=== PATIENT | male | born 1965 | race Caucasian/White ===

== ENCOUNTER 2020-12-15 09:50 | Emergency (ER) | payer BC ==
[2020-12-15] MEDS ORDERED: Sodium Chloride 0.9% 10 ML Syringe FLUSH PRN (10:13)
[2020-12-15] MEDS ORDERED: methylPREDNISolone Sodium Succinate 125 MG/2 ML SDV IVPUSH ONE (10:13)
[2020-12-15] MEDS ORDERED: HYDROmorphone 1 MG/ML Syringe IVPUSH ONE (10:13)
--- NOTE | 2020-12-15 11:00 | EDM.PDOC ---
ED HPI GENERAL MEDICAL PROBLEM - General Stated Complaint: NECK PAIN Time Seen by Provider: 12/15/20 10:45 Source of Information: Reports: Patient, Family History Limitations: Reports: No Limitations - History of Present Illness INITIAL COMMENTS - FREE TEXT/NARRATIVE: Patient presents for neck pain. He states that on Dec 12 he awoke with a stiff and sore neck. He didn't think much of it and went about his day other than his ability to turn his head to the right was limited. Went to the gym, stretched and tried to lift. This made it a bit worse. 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 Didn't help. Went to see a chiropractor but did not have forceful manipulation of the neck. Then went to a massage therapist. None of these things helped,. He has been taking NSAIDS and had a flexeril one night that helped him sleep for a bit. No neck trauma. No changes in vision, no numbness or weakness to the upper extremities. Onset Date: 12/12/20 Duration: Getting Worse Location: Reports: Neck Associated Symptoms: Reports: No Other Symptoms Treatments YARD COUPLER: Reports: NSAIDS, Other Medication(s) Other Treatments YARD COUPLER: flexeril, chiropractic, massage - Related Data Allergies Allergy/AdvReac Type Severity Reaction Status Date / Time dust mites Allergy Other Uncoded 03/26/18 12:11 mold and smuts Allergy Other Uncoded 03/26/18 12:11 weeds Allergy Other Uncoded 03/26/18 12:11 Home Meds: Home Meds Cyclobenzaprine HCl 10 mg PO TID PRN 03/26/18 [History] Multivitamin [Multiple Vitamins] 1 tab PO DAILY 03/26/18 [History] Hydrocodone/Acetaminophen [HYDROcodone-Acetaminophen 5-325 MG] 1 each PO Q4H #25 tab 12/15/20 [Rx] diazePAM [Valium] 5 mg PO TID PRN #15 tablet 12/15/20 [Rx] Past Medical History Cardiovascular History: Reports: High Cholesterol Gastrointestinal History: Reports: Other (See Below) Other Gastrointestinal History: FM HX colon polyps Other Neuro History: Insomnia - Past Surgical History Neurological Surgical History: Reports: Spinal Fusion Musculoskeletal Surgical History: Reports: Arthroscopic Knee, Other (See Below) Other Musculoskeletal Surgeries/Procedures:: Spine surgery. Hammer toe. Bunionectomy Left. Stab phlebectomy varicose veins. back muscle spasms Social & Family History - Tobacco Use Tobacco Use Status *Q: Never Tobacco User - Recreational Drug Use Recreational Drug Use: No Drug Use in Last 12 Months: No - Living Situation & Occupation Living situation: Reports: , with Spouse ED ROS GENERAL - Review of Systems Review Of Systems: See Below Constitutional: Reports: No Symptoms. Denies: Fever, Chills, Fatigue HEENT: Reports: No Symptoms. Denies: Nosebleed, Nose Pain, Rhinitis, Sinus Problem Respiratory: Reports: No Symptoms. Denies: Shortness of Breath, Wheezing, Cough Cardiovascular: Reports: No Symptoms. Denies: Chest Pain, Dyspnea on Exertion, Edema Endocrine: Reports: No Symptoms GI/Abdominal: Reports: No Symptoms. Denies: Abdominal Pain, Diarrhea, Nausea, Vomiting : Reports: No Symptoms. Denies: Discharge, Dysuria, Frequency Musculoskeletal: Reports: Neck Pain Skin: Reports: No Symptoms Neurological: Reports: No Symptoms. Denies: Confusion, Dizziness, Headache, Seizure, Tremors, Trouble Speaking ED EXAM, UPPER BACK/NECK PAIN - Physical Exam Exam: See Below Exam Limited By: No Limitations General Appearance: Alert, WD/WN, No Apparent Distress Eye Exam: Bilateral Eye: EOMI, Normal Inspection, PERRL Ears Exam: Normal External Exam, Normal Canal, Hearing Grossly Normal, Normal TMs Nose Exam: Normal Inspection, Normal Mucousa Throat/Mouth Exam: Normal Inspection, Normal Lips, Normal Teeth, Normal Oropharynx, Normal Voice, No Airway Compromise Head Exam: Atraumatic Neck Exam: Limited Range of Motion (minimal ability to rotate to the left, right, chin to chest and extension of the neck), Muscle Spasm (of the trapezius bilaterally and the scalenes bilaterally. ), Painful Range of Motion. No: Stiff Neck Nexus Criteria: No: Posterior, Midline Cervical Tenderness Cardiovascular/Respiratory: Regular Rate, Rhythm, Normal Breath Sounds Extremities: Other (negative pronator drift. 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 normal sensation of the upper extremities) Neurologic: No Motor/Sensory Deficits, Alert Course - Orders/Labs/Meds Orders: Active Orders 24 hr Category Date Time Status Sodium Chloride 0.9% [Saline Flush] Med 12/15/20 10:13 Active 10 ml FLUSH ASDIRECTED PRN Peripheral IV Insertion Adult [OM.PC] Routine Oth 12/15/20 10:13 Ordered Medication Orders Sodium Chloride (Sodium Chloride 0.9% 10 Ml Syringe) 10 ml FLUSH ASDIRECTED PRN PRN Reason: Keep Vein Open Meds: Medications Generic Name Dose Route Start Last Admin Trade Name Freq PRN Reason Stop Dose Admin Sodium Chloride 10 ml 12/15/20 10:13 Sodium Chloride 0.9% 10 Ml Syringe FLUSH ASDIRECTED PRN Keep Vein Open Discontinued Medications Generic Name Dose Route Start Last Admin Trade Name Freq PRN Reason Stop Dose Admin Diazepam 5 mg 12/15/20 10:13 Diazepam 10 Mg/2 Ml Syringe IVPUSH 12/15/20 10:14 STAT ONE Hydromorphone HCl 1 mg 12/15/20 10:13 Hydromorphone 1 Mg/Ml Syringe IVPUSH 12/15/20 10:14 ONETIME ONE Methylprednisolone Sodium Succinate 125 mg 12/15/20 10:13 Methylprednisolone Sodium Succinate 125 Mg/2 Ml Sdv IVPUSH 12/15/20 10:14 ONETIME ONE - Re-Assessments/Exams Free Text/Narrative Re-Assessment/Exam: 12/15/20 11:15 Patient has torticollis, given IV solu medrol 125 mg , valium 5 mg IVP, dilaudid 1 mg IVP. ecnourage with heat, gentle traction, stretching, e stim, valium and hydrocodone for home. discussed massage, chiropractor without forceful maniuplation, and massage. Was feeling better at discharge Departure - Departure Time of Disposition: 10:55 Disposition: Home, Self-Care 01 Condition: Good Clinical Impression: Torticollis, Neck muscle spasm - Discharge Information *PRESCRIPTION DRUG MONITORING PROGRAM REVIEWED*: No *COPY OF PRESCRIPTION DRUG MONITORING REPORT IN PATIENT GINGER: No Prescriptions: Hydrocodone/Acetaminophen [HYDROcodone-Acetaminophen 5-325 MG] 1 each PO Q4H #25 tab diazePAM [Valium] 5 mg PO TID PRN #15 tablet PRN Reason: Muscle Spasm - Painful Instructions: Muscle Cramps and Spasms, [id number], Acute Torticollis, Adult Additional Instructions: Take the valium 1-2 tablets every 8 hours as needed for muscle spasm. Take hydrocodone 1-2 tablets every 4-6 hours as needed for pain. Continue to take anti inflammatory of your choice ( aleve or ibuprofen) corry regular basis. Heat, stretching, massage, e stim and traction may help. Use passive stretching to work on range of motion. medication causes drowsiness and constipation. take measures to avoid constipation and do not drive or drink alcohol on these medications., - My Orders Last 24 Hours: My Active Orders 12/15/20 10:13 Sodium Chloride 0.9% [Saline Flush] 10 ml FLUSH ASDIRECTED PRN Peripheral IV Insertion Adult [OM.PC] Routine - Assessment/Plan Last 24 Hours: My Active Orders 12/15/20 10:13 Sodium Chloride 0.9% [Saline Flush] 10 ml FLUSH ASDIRECTED PRN Peripheral IV Insertion Adult [OM.PC] Routine
== END 2020-12-15 11:08 | disposition home or self-care (01) ==
LOC: VM.ED 09:50
DX: M43.6 Torticollis (principal); M62.838 Other muscle spasm; Z91.048 Other nonmedicinal substance allergy status
CPT/HCPCS: 96374; 96375; 99283; 99283-25; J1170; J2930; J3360